=== PATIENT | male | born 1990 | race American Indian/Alaskan Native ===

== ENCOUNTER 2020-02-12 01:14 | Emergency (ER) | payer SELFPAY ==
[2020-02-12 02:05] LABS: Bilirubin,Urine NEG (Negative); Blood,Urine NEG (Negative); Color,Urine Yellow (Yellow); Mucus,Urine FEW /HPF; Protein,Urine <15 mg/dL mg/dL (Negative); Urobilinogen,Urine < 2.0 mg/dL (<2.0)
--- NOTE | 2020-02-12 02:24 | Emergency Department Report ---
ED General Adult HPI - General Chief complaint: Abdominal Pain Stated complaint: SHORTNESS OF BREATH Time Seen by Provider: 02/12/20 01:52 Source: patient Mode of arrival: Ambulatory Limitations: No Limitations - History of Present Illness Initial comments: 29-year-old -[place] male smoker presents emergency department complaining of a 2 to 3-week history of left-sided chest tightness associated with shortness of breath which is episodic in nature lasting for a matter of minutes with no significant palliative factors. Sometimes pain is associated with right flank pain but he is also been noticing some easy bruising and pruritus as well. Reports no diarrhea constipation no nausea or vomiting. No fever, chills, sweats no hemoptysis no hematemesis no hematochezia. Reports no wheezing no odynophagia or dysphagia no known contact with the coronavirus. No foreign travel. No lower extremity swelling. Improves with: none Worsens with: none Associated Symptoms: denies: confusion, chest pain, headaches, loss of appetite, malaise, shortness of breath, syncope, weakness Treatments Prior to Arrival: none - Related Data Previous Rx's Medication Instructions Recorded Last Taken Type Albuterol INH(or & Nicu Only) 1 puff IH QID PRN #8.5 gram 02/12/20 Unknown Rx [ProAir HFA Inhaler] Allergies Allergy/AdvReac Type Severity Reaction Status Date / Time No Known Allergies Allergy Unverified 02/12/20 01:37 ED Review of Systems ROS: Stated complaint: SHORTNESS OF BREATH Other details as noted in HPI Comment: All other systems reviewed and negative ED Past Medical Hx - Past Medical History Previous Medical History?: No - Surgical History Past Surgical History?: No - Social History Smoking Status: Current Every Day Smoker Substance Use Type: None - Medications Home Medications: Home Medications Medication Instructions Recorded Confirmed Last Taken Type Albuterol INH(or & Nicu Only) 1 puff IH QID PRN #8.5 gram 02/12/20 Unknown Rx [ProAir HFA Inhaler] ED Physical Exam - General Limitations: No Limitations General appearance: alert, in no apparent distress - Head Head exam: Present: atraumatic, normocephalic - Eye Eye exam: Present: normal appearance, PERRL, EOMI Pupils: Present: normal accommodation - ENT ENT exam: Present: normal exam, mucous membranes moist, TM's normal bilaterally - Neck Neck exam: Present: normal inspection, full ROM - Respiratory Respiratory exam: Present: normal lung sounds bilaterally. Absent: respiratory distress, wheezes, rales, rhonchi, chest wall tenderness, accessory muscle use, decreased breath sounds - Cardiovascular Cardiovascular Exam: Present: regular rate, normal rhythm. Absent: systolic murmur, diastolic murmur, rubs, gallop - GI/Abdominal GI/Abdominal exam: Present: soft, tenderness (Vague diffuse tenderness with palpation abdomen soft), normal bowel sounds. Absent: hypoactive bowel sounds, organomegaly, mass, bruit, pulsatile mass - Rectal Rectal exam: Present: deferred - Extremities Exam Extremities exam: Present: normal inspection - Back Exam Back exam: Present: normal inspection, paraspinal tenderness. Absent: CVA tenderness (R), CVA tenderness (L) - Neurological Exam Neurological exam: Present: alert, oriented X3, CN II-XII intact, normal gait - Psychiatric Psychiatric exam: Present: normal affect, normal mood - Skin Skin exam: Present: warm, dry, intact, normal color. Absent: rash ED Medical Decision Making - Lab Data Result diagrams: 02/12/20 02:23 02/12/20 02:23 - Radiology Data Radiology results: report reviewed [facility] [address] [place] [address] XRay Report Signed Patient: ELIEZER OSEGUERA MR#: [id number] : 1990 Acct:[id number] Age/Sex: 29 / M ADM Date: 02/12/20 Loc: ED Attending Dr: Ordering Physician: HENRY ESPINOSA Date of Service: 02/12/20 Procedure(s): XR chest routine 2V Accession Number(s): [id number] cc: HENRY ESPINOSA Fluoro Time In Minutes: CHEST 2 VIEWS, 02/12/2020 2:48 AM INDICATION: Chest pain COMPARISON: None FINDINGS: Support devices: None. Heart: The cardiac silhouette is normal in size. Lungs/pleura: The lungs are clear of focal airspace disease or significant pleural effusion. Additional findings: No significant acute abnormality. IMPRESSION: 1. No evidence of acute cardiopulmonary process. Signer Name: Jing Cordero MD Signed: 02/12/2020 2:50 AM Workstation Name: [id number] Transcribed By: EB Dictated By: Jing Cordero MD Electronically Authenticated By: Jing Cordero MD Signed Date/Time: 02/12/20249 DD/ 9 TD/TT: - Medical Decision Making This patient presents with chest pain that is very unlikely angina or acute coronary syndrome. The emergency department evaluation has not identified any cause for suspicion that this chest pain has a cardiac etiology. Based on their history, EKG (which showed no evidence of ischemia or infarction) and imaging, in addition to the patient's physical exam, I see no evidence at this time for a malignant etiology for the patient's chest pain. There is no acute evidence for pulmonary embolus, acute myocardial infarction, pneumothorax, Boerhaeve syndr ome, cardiac tamponade, thoracic artery dissection, or any other emergent cardiac, pulmonary or aortic pathology. Given the low pre-test probability for cardiac etiology of chest pain and the absence of any sign of ischemia or infarction, discharge for outpatient follow-up and further evaluation is reasonable. I have explained to the patient that even though a cardiac problem is very unlikely, follow-up and further testing is required to reduce further the already small uncertainty that exists. Other life-threatening diagnoses have been considered. The patient understands the need to return immediately if their symptoms worsen or they develop any new symptoms, and not to engage in any signi ficant exertional activity until follow-up is obtained. This patient presents with abdominal pain of unclear etiology. Their evaluation has not identified a emergent etiology for the abdominal pain. Specifically, given the very benign exam, normal laboratory studies, and lack of significant risk factors, I have a very low suspicion for appendicitis, ischemic bowel, bowel perforation, or any other life threatening disease. I have discussed with the patient the level of uncertainty with undifferentiated abdominal pain and clearly explained the need to follow-up as noted on the discharge instructions, or return to the Emergency Department immediately if the pain worsens, develops fever, persistent and uncontrollable vomiting, or for any new symptoms or concerns. I discussed with the patient that this presentation today for abdominal pain could represent a significant risk for an acute abdominal process. Although the tests in the ED were essentially normal, there is still a possibility of a process such as appendicitis, diverticulitis, cholecystitis, ulcer, early bowel obstruction, mesenteric ischemia, kidney stone, or even kidney infection which could subsequently cause disability or . The patient understands that they must return within 24 hours for a recheck or see their physician within 24 hours for re-exam due to the possibility of significant surgical or medical process. Critical care attestation.: If time is entered above; I have spent that time in minutes in the direct care of this critically ill patient, excluding procedure time. ED Disposition Clinical Impression: Chest pain, Flank pain Disposition: TO HOME OR SELFCARE Is pt being admited?: No Does the pt Need Aspirin: No Condition: Stable Instructions: Chest Pain (ED), Flank Pain (ED) Additional Instructions: To be sure to follow-up with the listed provider for further evaluation of your complaints. Follow-up with Dr. Gifford the truck driver teamster for the evaluation of your chest and Dr. Darcy Livingston for your flank and abdominal discomfort Prescriptions: Albuterol INH(or & Nicu Only) [ProAir HFA Inhaler] 1 puff IH QID PRN #8.5 gram PRN Reason: Shortness Of Breath Referrals: KENNEY HAWKINS MD [Staff Physician] - 3-5 Days JAMES GIFFORD MD [Staff Physician] - 3-5 Days
[2020-02-12 02:37] LABS: Basophils % (Auto) 0.7 % (0.0-1.8); Eosinophils # (Auto) 0.5 K/mm3 (0.0-0.4); Eosinophils % (Auto) 8.4 % (0.0-4.3); Hematocrit 39.7 % (35.5-45.6); Hemoglobin 13.8 gm/dl (11.8-15.2); Lymphocytes # (Auto) 2.2 K/mm3 (1.2-5.4); Lymphocytes % (Auto) 35.2 % (13.4-35.0); Mean Corpuscular HGB Conc 35 % (32-34); Mean Corpuscular Volume 97 fl (84-94); Monocytes # (Auto) 0.6 K/mm3 (0.0-0.8); Monocytes % (Auto) 9.4 % (0.0-7.3); Platelet Count 216 K/mm3 (140-440); Red Blood Count 4.09 M/mm3 (3.65-5.03); Red Cell Distribution Width 12.7 % (13.2-15.2)
--- NOTE | 2020-02-12 02:55 | XRay Report ---
CHEST 2 VIEWS, 02/12/2020 2:48 AM INDICATION: Chest pain COMPARISON: None FINDINGS: Support devices: None. Heart: The cardiac silhouette is normal in size. Lungs/pleura: The lungs are clear of focal airspace disease or significant pleural effusion. Additional findings: No significant acute abnormality. IMPRESSION: 1. No evidence of acute cardiopulmonary process. Signer Name: Jing Cordero MD Signed: 02/12/2020 2:50 AM Workstation Name: [id number]
[2020-02-12 02:59] LABS: Alanine Aminotransferase 43 units/L (7-56); Albumin 4.2 g/dL (3.9-5); BUN/Creatinine Ratio 18; Blood Urea Nitrogen 14 mg/dL (9-20); Calcium 9.3 mg/dL (8.4-10.2); Hemolysis Index 63
[2020-02-12 04:02] VITALS: BP 124/82
== END 2020-02-12 04:03 | disposition home or self-care (01) ==
LOC: ED 01:14
DX: R07.89 Other chest pain (principal); R10.9 Unspecified abdominal pain; F17.200 Nicotine dependence, unspecified, uncomplicated; Z79.899 Other long term (current) drug therapy
CPT/HCPCS: 36415; 71046; 80053; 81001; 83690; 85025; 93005

== ENCOUNTER 2020-12-27 11:39 | Emergency (ER) | payer SELFPAY ==
[2020-12-27 11:51] VITALS: BP 139/90
--- NOTE | 2020-12-27 12:25 | Emergency Department Report ---
ED Lower Extremity HPI - General Chief Complaint: Extremity Injury, Lower Stated Complaint: LT ANKLE Time Seen by Provider: 12/27/20 12:22 Source: patient Mode of arrival: Wheelchair Limitations: Physical Limitation - History of Present Illness Initial Comments: 30-year-old -[place] male presents to the emergency room stating he was playing basketball yesterday and had twisted his left ankle. Woke up this morning with swelling and pain. Patient states he took Tylenol yesterday no pain medication today. Patient denies any past medical history. MD Complaint: ankle injury Onset/Timin -: days(s) Injury: Ankle: Left Type of Injury: inversion Place: street/outdoors Severity scale (0 -10): 8 Improves With: immobilization Worsens With: weight bearing Context: jumping Associated Symptoms: snap/pop sensation, swelling, unable to bear weight - Related Data Previous Rx's Medication Instructions Recorded Last Taken Type Albuterol Mdi (or & Nicu Only) 1 puff IH QID PRN #8.5 gram 02/12/20 Unknown Rx [ProAir HFA Inhaler] Ibuprofen [Motrin 800 MG tab] 800 mg PO Q8HR PRN #21 tablet 12/27/20 Unknown Rx Allergies Allergy/AdvReac Type Severity Reaction Status Date / Time No Known Allergies Allergy Unverified 02/12/20 01:37 ED Review of Systems ROS: Stated complaint: LT ANKLE Other details as noted in HPI Comment: All other systems reviewed and negative ED Past Medical Hx - Past Medical History Previous Medical History?: No - Surgical History Past Surgical History?: No - Social History Smoking Status: Current Every Day Smoker Substance Use Type: None - Medications Home Medications: Home Medications Medication Instructions Recorded Confirmed Last Taken Type Albuterol Mdi (or & Nicu Only) 1 puff IH QID PRN #8.5 gram 02/12/20 Unknown Rx [ProAir HFA Inhaler] Ibuprofen [Motrin 800 MG tab] 800 mg PO Q8HR PRN #21 tablet 12/27/20 Unknown Rx ED Physical Exam - General Limitations: Physical Limitation General appearance: alert - Head Head exam: Present: atraumatic, normocephalic - Eye Eye exam: Present: normal appearance - ENT ENT exam: Present: mucous membranes moist - Neck Neck exam: Present: normal inspection, full ROM - Respiratory Respiratory exam: Absent: accessory muscle use - Cardiovascular Cardiovascular Exam: Present: regular rate ED Course Vital Signs 12/27/20 11:50 Temperature 98.1 F Pulse Rate 99 H Respiratory 18 Rate Blood Pressure 139/90 O2 Sat by Pulse 95 Oximetry ED Lower Extremity MDM - Radiology Data Radiology results: report reviewed [facility] [address] [place] [address] XRay Report Signed Patient: ELIEZER OSEGUERA MR#: [id number] : 1990 Acct:[id number] Age/Sex: 30 / M ADM Date: 12/27/20 Loc: ED Attending Dr: Ordering Physician: HENRY SHAY Date of Service: 12/27/20 Procedure(s): XR ankle 3+V LT Accession Number(s): [id number] cc: HENRY SHAY Fluoro Time In Minutes: XR ankle 3+V LT INDICATION / CLINICAL INFORMATION: Left ankle injury swelling and pain. COMPARISON: None available. FINDINGS: BONES/JOINT(S): No acute fracture or subluxation. No significant degenerative changes. SOFT TISSUES: No significant abnormality. ADDITIONAL FINDINGS: None. Signer Name: Vitor Feliz MD Signed: 12/27/2020 1:00 PM Workstation Name: [id number] Transcribed By: LORRIE Dictated By: Vitor Feliz MD Electronically Authenticated By: Vitor Feliz MD Signed Date/Time: 12/27/20 1300 DD/ 1300 TD/TT: Print Cancel - Medical Decision Making 30-year-old -[place] male presents to the emergency room stating he was playing basketball yesterday and had twisted his left ankle. Woke up this morning with swelling and pain. Patient states he took Tylenol yesterday no pain medication today. Patient denies any past medical history. X-ray of left ankle shows no acute abnormalities. Patient will be placed on a ankle Aircast stirrup and crutches. Critical care attestation.: If time is entered above; I have spent that time in minutes in the direct care of this critically ill patient, excluding procedure time. ED Disposition Clinical Impression: Left ankle sprain Qualifiers: Encounter type: initial encounter Involved ligament of ankle: unspecified ligament Qualified Code(s): S93.402A - Sprain of unspecified ligament of left ankle, initial encounter Disposition: DC-01 TO HOME OR SELFCARE Is pt being admited?: No Does the pt Need Aspirin: No Condition: Stable Instructions: How to Use a Stirrup Ankle Brace, [id number], Ankle Sprain, [id number] Additional Instructions: X-rays negative for any acute fractures. We are ankle stirrup and use crutches and follow-up with a primary care provider or orthopedic provider. Prescriptions: Ibuprofen [Motrin 800 MG tab] 800 mg PO Q8HR PRN #21 tablet PRN Reason: Pain , Severe (7-10) Referrals: CELESTINE ANNE MD [Staff Physician] - 3-5 Days [facility] [Outside] - 3-5 Days Forms: Work/School Release Form(ED)
--- NOTE | 2020-12-27 13:05 | XRay Report ---
XR ankle 3+V LT INDICATION / CLINICAL INFORMATION: Left ankle injury swelling and pain. COMPARISON: None available. FINDINGS: BONES/JOINT(S): No acute fracture or subluxation. No significant degenerative changes. SOFT TISSUES: No significant abnormality. ADDITIONAL FINDINGS: None. Signer Name: Vitor Feliz MD Signed: 12/27/2020 1:00 PM Workstation Name: [email or web address]
== END 2020-12-27 13:57 | disposition home or self-care (01) ==
LOC: ED 11:39
DX: S93.402A Sprain of unspecified ligament of left ankle, initial encounter (principal); F17.200 Nicotine dependence, unspecified, uncomplicated; Z79.899 Other long term (current) drug therapy; X50.1XXA Overexertion from prolonged static or awkward postures, initial encounter; Y93.89 Activity, other specified; Y92.89 Other specified places as the place of occurrence of the external cause; Y99.8 Other external cause status
CPT/HCPCS: 99283

== ENCOUNTER 2022-01-16 23:55 | Emergency (ER) | payer SELFPAY ==
[2022-01-17 00:17] VITALS: BP 153/98
[2022-01-17] MEDS ORDERED: ASPIRIN 325 MG TAB PO ONE (00:18)
[2022-01-17 00:55] LABS: Basophils % (Auto) 0.7 % (0.0-1.8); Eosinophils # (Auto) 0.3 K/mm3 (0.0-0.4); Eosinophils % (Auto) 4.4 % (0.0-4.3); Hemoglobin 13.4 gm/dl (11.8-15.2); Lymphocytes # (Auto) 2.8 K/mm3 (1.2-5.4); Lymphocytes % (Auto) 45.5 % (13.4-35.0); Mean Corpuscular HGB Conc 34 % (32-34); Mean Corpuscular Volume 97 fl (84-94); Monocytes # (Auto) 0.7 K/mm3 (0.0-0.8); Monocytes % (Auto) 10.9 % (0.0-7.3); Platelet Count 225 K/mm3 (140-440); Red Blood Count 4.12 M/mm3 (3.65-5.03); Red Cell Distribution Width 12.8 % (13.2-15.2)
[2022-01-17 01:20] LABS: Alanine Aminotransferase 34 units/L (7-56); Albumin 4.7 g/dL (3.9-5); BUN/Creatinine Ratio 12; Blood Urea Nitrogen 14 mg/dL (9-20); Calcium 9.6 mg/dL (8.4-10.2); Hemolysis Index 5
--- NOTE | 2022-01-17 01:33 | XRay Report ---
CHEST 2 VIEWS INDICATION / CLINICAL INFORMATION: CHEST PAIN. COMPARISON: Chest x-ray 02/12/2020 FINDINGS: SUPPORT DEVICES: None. HEART / MEDIASTINUM: No significant abnormality. LUNGS / PLEURA: No significant pulmonary or pleural abnormality. No pneumothorax. BONES: No significant osseous abnormality. ADDITIONAL FINDINGS: No significant additional findings. IMPRESSION: 1. No active cardiopulmonary disease. Signer Name: Eduardo Myrick II, MD Signed: 01/17/2022 1:29 AM Workstation Name: [id number]
--- NOTE | 2022-01-19 13:19 | Electrocardiograph Report ---
[facility] Test Date: 2022-01-17 Test Time: 00:11:55 Pat Name: ELIEZER OSEGUERA Department: Room: Gender: M Music Worker: ANGIE : 1990 Requested By: BK RIVER Order Number: [id number] Reading MD: Johanna Anderson Measurements Intervals [place] Rate: 70 P: 64 ID: [id number] QRS: 74 QRSD: 85 T: 50 QT: 388 QTc: 418 Interpretive Statements Sinus rhythm Early repolarization ST changes No previous ECG available for comparison Electronically Signed On 01-19-2022 13:18:52 EDT by Johanna Anderson
== END 2022-01-17 06:47 | disposition left against medical advice (07) ==
LOC: ED 23:55
DX: R42 Dizziness and giddiness (principal); R51.9 Headache, unspecified; Z53.21 Procedure and treatment not carried out due to patient leaving prior to being seen by health care provider
CPT/HCPCS: 36415; 71046; 80053; 84484; 85025; 93005

== ENCOUNTER 2022-01-17 08:06 | Emergency (ER) | payer SELFPAY ==
[2022-01-17] MEDS ORDERED: MECLIZINE 25 MG TAB PO ONE (09:19)
--- NOTE | 2022-01-17 09:19 | Emergency Department Report ---
ED Dizziness HPI - General Stated Complaint: CHEST PAIN/HEADACHE/DIZZY Source: patient Mode of arrival: Ambulatory Limitations: No Limitations - History of Present Illness Initial Comments: Patient is a 31-year-old male that comes to the emergency room complaining of intermittent sensation of the room spinning. He states that as long as he sits or lies still he has no symptoms. But when he turns his head to the right or the left he gets a sensation of the room spinning. He denies any nausea vomiting. Denies headache. Denies trauma. Denies any chest pain or shortness of breath. Denies history of the same. Patient has a history of allergies especially to pollen. On arrival to fast track patient is ambulatory, not ill nontoxic-appearing. MD Complaint: dizziness -: Sudden Timing: sudden onset Description: "room spinning" History of Same: No History of Trauma: No Severity: moderate Improves With: remaining still Worsens With: movement Associated Symptoms: denies other symptoms - Related Data Previous Rx's Medication Instructions Recorded Last Taken Type Meclizine [Antivert] 25 mg PO TID PRN #20 01/17/22 Unknown Rx Allergies Allergy/AdvReac Type Severity Reaction Status Date / Time No Known Allergies Allergy Unverified 02/12/20 01:37 ED Review of Systems ROS: Stated complaint: CHEST PAIN/HEADACHE/DIZZY Other details as noted in HPI Comment: All other systems reviewed and negative ED Past Medical Hx - Past Medical History Previous Medical History?: Yes Additional medical history: Seasonal allergies - Surgical History Past Surgical History?: No - Family History Family history: no significant - Social History Smoking Status: Current Every Day Smoker Substance Use Type: Alcohol - Medications Home Medications: Home Medications Medication Instructions Recorded Confirmed Last Taken Type Meclizine [Antivert] 25 mg PO TID PRN #20 01/17/22 Unknown Rx ED Physical Exam - General Limitations: No Limitations General appearance: alert, in no apparent distress - Head Head exam: Present: atraumatic, normocephalic - Eye Eye exam: Present: normal appearance - ENT ENT exam: Present: mucous membranes moist - Expanded ENT Exam Expanded Ear exam: Present: other (I am able to replicate symptoms with rapid head movement to the right associated with horizontal nystagmus) Mouth exam: Present: normal external inspection Throat exam: Positive: normal inspection - Neck Neck exam: Present: normal inspection - Respiratory Respiratory exam: Present: normal lung sounds bilaterally. Absent: respiratory distress - Cardiovascular Cardiovascular Exam: Present: regular rate, normal rhythm. Absent: systolic murmur, diastolic murmur, rubs, gallop - GI/Abdominal GI/Abdominal exam: Present: soft, normal bowel sounds - Rectal Rectal exam: Present: deferred - Extremities Exam Extremities exam: Present: normal inspection - Back Exam Back exam: Present: normal inspection - Neurological Exam Neurological exam: Present: alert, oriented X3 - Psychiatric Psychiatric exam: Present: normal affect, normal mood - Skin Skin exam: Present: warm, dry, intact, normal color. Absent: rash ED Medical Decision Making - EKG Data -: EKG Interpreted by Me EKG shows normal: sinus rhythm Rate: normal - EKG Data When compared to previous EKG there are: no significant change Interpretation: no acute changes - Radiology Data Radiology results: report reviewed, image reviewed No acute process - Medical Decision Making See labs and vital signs from previous encounter: Patient was accidentally taken out the system and had to be replaced. However, last night and this a.m. visit is all 1 encounter. CBC, CMP and troponin all normal. Vital signs are normal as documented manually during the prior encounter by the RN. I am able to replicate symptoms with rapid head movement to the right. See exam. Patient given Antivert. Approximately 45 minutes later patient reported feeling much better. I was unable to replicate the symptoms at that time. Patient discharged home with discharge planning care including diet, medication, activity and follow-up. He verbalizes understanding of plan - Differential Diagnosis Vertigo Critical care attestation.: If time is entered above; I have spent that time in minutes in the direct care of this critically ill patient, excluding procedure time. ED Disposition Clinical Impression: Vertigo Disposition: 01 HOME / SELF CARE / HOMELESS Is pt being admited?: No Does the pt Need Aspirin: No Condition: Stable Instructions: Vertigo, [id number] Additional Instructions: Take [id number] Zyrtec daily Antivert as prescribed today if you need it for vertigo Stay well-hydrated with water Follow-up with PCP, there is a referral below Prescriptions: Meclizine [Antivert] 25 mg PO TID PRN #20 PRN Reason: Vertigo Referrals: THANH TOBIAS MD [Primary Care Provider] - 3-5 Days KENNEY HAWKINS MD [Staff Physician] - 3-5 Days Forms: Work/School Release Form(ED) Time of Disposition: 09:45
== END 2022-01-17 10:00 | disposition home or self-care (01) ==
LOC: ED 08:06
DX: R42 Dizziness and giddiness (principal)
CPT/HCPCS: 99282